=== PATIENT | female | born 1995 | race Caucasian/White ===

== ENCOUNTER 2021-05-31 23:52 | Inpatient (IN) | payer OTHER ==
[~2021-05-31] VITALS: Ht 167.6 cm; Wt 77.6 kg
[2021-06-01] MEDS ORDERED: ONE-A-DAY PREN1 EAC2 PO (01:10)
--- NOTE | 2021-06-01 18:48 | PR ---
[facility] [address] [facility] [place], [place] [address] Signed Progress Notes IP Datetime Report Generated by CPN: 06/01/2021 18:48 PROGRESS NOTES: [id number] Impression: Arrest of Dilatation/Descent; Reassuring Heart Rate Plan: Continue Present Management Other Plans: add pitocin VITAL SIGNS: [id number] EXAM: [id number] Dilatation: 5.0 Effacement: 85 Station: -2 Contractions: q 2-3 min, mild per pt MEMBRANES: [id number] Membranes Status: Ruptured Comments: Pt is a 26 yo @ 37 weeks gestation here for MIOL for gHTN -s/p cytotec x 2, AROM, minimal progress since 4pm -comfortable with epidural -s/p Julian x 5 doses -start low-dose pitocin FETUS A: [id number] FHR Baseline: 145 Variability: Minimal - >Undetectable to <=5bpm Accelerations: None Decelerations: None FHR Category: Category II Presentation: Vertex FETUS B: [id number] Signing Physician: Evin Calhoun DO Copies: ~ *Electronically Signed* 06/01/21 184 EVIN CALHOUN DO PATIENT NAME: XIN WILLETT PROGRESS NOTE DATE OF : [birth year] PHYSICIAN: EVIN CALHOUN #: [id number] REPORT IS CONFIDENTIAL AND NOT TO BE RELEASED WITHOUT AUTHORIZATION
--- NOTE | 2021-06-01 22:37 | PR ---
[facility] [address] [facility] [place], [place] [address] Signed Progress Notes IP Datetime Report Generated by CPN: 06/01/2021 22:37 PROGRESS NOTES: [id number] Impression: Normal Progression of Labor; Reassuring Heart Rate Plan: Continue Present Management Other Plans: add pitocin VITAL SIGNS: [id number] EXAM: [id number] Dilatation: 6.0 Effacement: 90 Station: 0 Contractions: q 2-3 min, mild per pt MEMBRANES: [id number] Membranes Status: Ruptured Comments: Progressing well with pitocin Discussed laboring down vs immediate pushing when complete, pt desires pushing when feeling strong urge Anticipate FETUS A: [id number] FHR Baseline: 145 Variability: Minimal - >Undetectable to <=5bpm Accelerations: None Decelerations: None FHR Category: Category II Presentation: Vertex FETUS B: [id number] Signing Physician: Evin Calhoun DO Copies: ~ *Electronically Signed* 06/01/212236 EVIN CALHOUN DO PATIENT NAME: XIN WILLETT PROGRESS NOTE DATE OF : [birth year] PHYSICIAN: EVIN CALHOUN DO RPT #: [id number] REPORT IS CONFIDENTIAL AND NOT TO BE RELEASED WITHOUT AUTHORIZATION
--- NOTE | 2021-06-03 08:56 | PR ---
[facility] [address] [place], [place] [address] Signed PP Progress Notes Datetime Report Generated by CPN: 06/03/2021 08:56 SUBJECTIVE: [id number] Pain: Within Normal Limits Nausea/Vomiting: Denies Flatus: Yes Bowel Movement: No Vital Signs: [id number] Vital Signs: Reviewed; Within Normal Limits Notable Details: Afebrile, normotensive EXAM: Ongoing Cardiovascular: Normal Respiratory: Normal Abdomen/Uterus: Normal Lochia: Normal Extremities: Normal Progress: Normal Exam Comments: NAD, sitting in bed eating breakfast RRR No dyspnea/retractions FFBU, abd SNTND Ext: trace edema, neg Natacha's BL IMPRESSION/PLAN/PROCEDURES: [id number] Impression: Normal Progression Plan: Continue Present Management Procedures: None Progress Notes: PPD #1 s/p after MIOL for gHTN -progressing well -hgb 10.0 PPD#1 s/p Intraamniotic infection, received amp/gent x 1, afebrile gHTN, normotensive , asymptomatic Plan: DC to home tomorrow (PPD#2) Signing Physician: Evin Calhoun DO Copies: *Electronically Signed* 06/03/21 0856 EVIN CALHOUN DO PATIENT NAME: XIN WILLETT PROGRESS NOTE DATE OF : [birth year] PHYSICIAN: EVIN CALHOUN DO RPT #: [id number] REPORT IS CONFIDENTIAL AND NOT TO BE RELEASED WITHOUT AUTHORIZATION [address], [place] [address] Signed ~ *Electronically Signed* 06/03/21 0856 EVIN CALHOUN DO PATIENT NAME: XIN WILLETT PROGRESS NOTE DATE OF : 94 PHYSICIAN: EVIN CALHOUN DO RPT #: [id number] REPORT IS CONFIDENTIAL AND NOT TO BE RELEASED WITHOUT AUTHORIZATION
--- NOTE | 2021-06-04 10:25 | PR ---
[facility] [address] [place], [place] [address] Signed PP Progress Notes Datetime Report Generated by CPChloe: 06/04/2021 10:25 SUBJECTIVE: [id number] Pain: Within Normal Limits Nausea/Vomiting: Denies Flatus: Yes Bowel Movement: No Vital Signs: [id number] Vital Signs: Reviewed; Within Normal Limits Notable Details: Normotensive and afebrile EXAM: Ongoing Cardiovascular: Normal Respiratory: Normal Abdomen/Uterus: Normal Lochia: Normal Vulva/Perineum: Normal Extremities: Normal Progress: Normal Exam Comments: NAD, standing at bedside RRR No dyspnea/ retractions Abd SNTND, FFBU Ext: 1+ BLLE edema, neg Natacha's BL with minimal milk production IMPRESSION/PLAN/PROCEDURES: [id number] Impression: Normal Progression Plan: Continue Present Management; Discharge Other Plans: outpatient support encouraged Procedures: None Progress Notes: PPD#2 s/p MIOL at 37 weeks gestation for gHTN -normotensive -PreE precautions reviewed Intraamniotic infection -maternal temp 102.7 while pushing shortly before delivery -s/p Amp/Gent IV x 1 dose *Electronically Signed* 06/04/21 1025 EVIN CALHOUN DO PATIENT NAME: XIN WILLETT PROGRESS NOTE DATE OF : [birth year] PHYSICIAN: EVIN CALHOUN DO RPT #: [id number] REPORT IS CONFIDENTIAL AND NOT TO BE RELEASED WITHOUT AUTHORIZATION [facility] [address] [place], [place] [address] Signed -afebrile GBS carrier -s/p adequate prophylaxis with Julian Retained placenta -manual extraction performed for missing piece of placenta -s/p Azithromycin 500mg for manual extraction -lochia WNL Anticipate DC to home today Uncertain re: contraception Signing Physician: Evin Cahloun DO Copies: ~ *Electronically Signed* 06/04/21 1025 EVIN CALHOUN DO PATIENT NAME: XIN WILLETT PROGRESS NOTE DATE OF : 94 PHYSICIAN: EVIN CALHOUN DO RPT #: [id number] REPORT IS CONFIDENTIAL AND NOT TO BE RELEASED WITHOUT AUTHORIZATION
== END 2021-06-04 11:50 | disposition home or self-care (01) | DRG 805 ==
LOC: FBC 06-01 00:01
PROVIDERS: ADMIT Obstetrics & Gynecology; ATTEND Obstetrics & Gynecology
PROC: 10E0XZZ Delivery of Products of Conception, External Approach (ICD-10-PCS; principal; 2021-06-02)
PROC: 10907ZC Drainage of Amniotic Fluid, Therapeutic from Products of Conception, Via Natural or Artificial Opening (ICD-10-PCS; 2021-06-02)
PROC: 3E0P7VZ Introduction of Hormone into Female Reproductive, Via Natural or Artificial Opening (ICD-10-PCS; 2021-06-02)
PROC: 0KQM0ZZ Repair Perineum Muscle, Open Approach (ICD-10-PCS; 2021-06-02)
PROC: 3E0R3BZ Introduction of Anesthetic Agent into Spinal Canal, Percutaneous Approach (ICD-10-PCS; 2021-06-02)
PROC: 00HU33Z Insertion of Infusion Device into Spinal Canal, Percutaneous Approach (ICD-10-PCS; 2021-06-02)
PROC: 10D17Z9 Manual Extraction of Products of Conception, Retained, Via Natural or Artificial Opening (ICD-10-PCS; 2021-06-02)
DX: O13.4 Gestational [pregnancy-induced] hypertension without significant proteinuria, complicating childbirth (principal); O41.1230 Chorioamnionitis, third trimester, not applicable or unspecified; Z37.0 Single live birth; Z3A.37 37 weeks gestation of pregnancy; O70.1 Second degree perineal laceration during delivery; O73.1 Retained portions of placenta and membranes, without hemorrhage; O99.824 Streptococcus B carrier state complicating childbirth; Z79.899 Other long term (current) drug therapy
CPT/HCPCS: 01960; 36415; 80053; 82570; 83615; 84156; 84550; 85027; 86850; 86900; 86901; A9270; J0290; J0456; J1580; J2001; J2405; J2540; J2590; J2795; J7060; J7121

== ENCOUNTER 2023-06-12 17:51 | Inpatient (IN) | payer OTHER ==
[~2023-06-12] VITALS: Ht 167.6 cm; Wt 82.6 kg
[~2023-06-12 17:51] MED LIST: ONE-A-DAY PREN1 EAC2 PO
[2023-06-12] MEDS ORDERED: miSOPROStoL 25 MCG TAB PV SCH (22:45)
[2023-06-12] MEDS ORDERED: MAGNESIUM HYDROXIDE/AL HYDROX 30 ML CUP PO PRN (22:45)
[2023-06-12] MEDS ORDERED: OXYTOCIN/DEXTROSE 5% 20 UNITS/100 ML BAG IV SCH (22:45)
[2023-06-12] MEDS ORDERED: CALCIUM CARBONATE 500 MG CHEW PO PRN (22:45)
[2023-06-12] MEDS ORDERED: PENICILLIN G POTASSIUM 5 MUNITS/110 ML PIGGYBACK IV ONE (23:00)
[2023-06-12 23:15] LABS: AMPHETAMINES, URINE NEGATIVE (NEGATIVE); BARBITURATES, URINE NEGATIVE (NEGATIVE); BENZODIAZEPINE, URINE NEGATIVE (NEGATIVE); BUPRENORPHINE, URINE NEGATIVE (NEGATIVE); CANNABINOID, URINE NEGATIVE (NEGATIVE); COCAINE, URINE NEGATIVE (NEGATIVE); ECSTASY, URINE NEGATIVE (NEGATIVE); FENTANYL, URINE NEGATIVE (NEGATIVE); METHADONE, URINE NEGATIVE (NEGATIVE); OPIATES, URINE NEGATIVE (NEGATIVE); OXYCODONE, URINE NEGATIVE (NEGATIVE); PHENCYCLIDINE, URINE NEGATIVE (NEGATIVE)
[2023-06-12] MEDS ORDERED: LACTATED RINGER'S 1,000 ML IV PRN (23:30)
[2023-06-12] MEDS ORDERED: LACTATED RINGER'S 1,000 ML IV SCH (23:30)
[2023-06-12 23:37] LABS: ABO O; RH POSITIVE
[2023-06-12 23:38] LABS: ANTIBODY SCREEN NEGATIVE
[2023-06-12 23:58] VITALS: BP 134/84
[2023-06-13] MEDS ORDERED: PENICILLIN G POTASSIUM 5 MUNITS/10 ML VIAL ONE ×2 (02:24→06:26)
[2023-06-13] MEDS ORDERED: PENICILLIN G POTASSIUM 2.5 MUNITS in DEXTROSE 5% 100 ML IV SCH (03:00)
[2023-06-13] MEDS ORDERED: ROPIVACAINE 0.2% 200 ML BAG ONE (08:00)
[2023-06-13] MEDS ORDERED: ePHEDrine sulfate 5 MG/ML SYRINGE IV PRN (08:30)
[2023-06-13] MEDS ORDERED: LACTATED RINGER'S 2,000 ML IV ONE (08:30)
[2023-06-13] MEDS ORDERED: LACTATED RINGER'S 500 ML IV PRN (08:30)
[2023-06-13] MEDS ORDERED: ROPIVACAINE 0.2% 200 ML BAG EPIDURAL SCH (08:30)
[2023-06-13] MEDS ORDERED: dexmedeTOMIDine HCl 200 MCG/2 ML VIAL ONE (08:53)
[2023-06-13] MEDS ORDERED: SODIUM CHLORIDE 0.9% 20 ML IV ONE (08:54)
--- NOTE | 2023-06-13 08:57 | PR ---
[facility] [address] [facility] [place], [place] [address] Signed Progress Notes IP Datetime Report Generated by CPN: 06/13/2023 08:57 PROGRESS NOTES: [id number] Impression: Normal Progression of Labor Procedures: Artificial ROM; Sterile Vag Exam Plan: Continue Present Management VITAL SIGNS: [id number] Vital Signs: Reviewed; Within Normal Limits EXAM: [id number] Dilatation: 4.5 Effacement: 80 Station: -2 Contractions: q 2 to 3 min MEMBRANES: [id number] Comments: More uncomfortable overall with some relief from epidural. status good. BPs still elevated but no severe elevations. Will continue. FETUS A: [id number] FHR Baseline: 125 Variability: Moderate 6-25bpm Accelerations: 15X15 Decelerations: None FHR Category: Category I Presentation: Vertex FETUS B: [id number] Signing Physician: Leesa Luna MD Copies: ~ *Electronically Signed* 06/13/23 0857 LEESA LUNA MD PATIENT NAME: XIN WILLETT PROGRESS NOTE DATE OF : 94 PHYSICIAN: LEESA LUNA MD RPT #: [id number] REPORT IS CONFIDENTIAL AND NOT TO BE RELEASED WITHOUT AUTHORIZATION
--- NOTE | 2023-06-13 10:51 | PR ---
[facility] [address] [place], [place] [address] Signed Progress Notes IP Datetime Report Generated by VALENTINO: 06/13/2023 10:51 PROGRESS NOTES: [id number] Impression: Normal Progression of Labor; Non-reassuring Heart Rate Procedures: Scalp Electrode; Sterile Vag Exam Plan: Continue Present Management Other Plans: position changes VITAL SIGNS: [id number] Vital Signs: Reviewed; Within Normal Limits EXAM: [id number] Dilatation: 8.0 Effacement: 80 Station: -2 Contractions: q 2 to 3 min MEMBRANES: [id number] Comments: Progressing well. status concerning but progressing rapidly. Will continue close observation with delivery hopefully soon. FETUS A: [id number] FHR Baseline: 125 Variability: Minimal - >Undetectable to <=5bpm Accelerations: 15X15 Decelerations: Variable FHR Category: Category II Presentation: Vertex FETUS B: [id number] Signing Physician: Leesa Luna MD Copies: ~ *Electronically Signed* 06/13/23 1051 LEESA LUNA MD PATIENT NAME: XIN WILLETT PROGRESS NOTE DATE OF : 94 PHYSICIAN: LEESA LUNA MD RPT #: [id number] REPORT IS CONFIDENTIAL AND NOT TO BE RELEASED WITHOUT AUTHORIZATION
[2023-06-13] MEDS ORDERED: WITCH HAZEL/GLYCERIN 1 EA PAD TOP PRN (12:00)
[2023-06-13] MEDS ORDERED: HYDROCORTISONE ACETATE 25 MG SUPP PR PRN (12:00)
[2023-06-13] MEDS ORDERED: MAGNESIUM HYDROXIDE/AL HYDROX 30 ML CUP PO PRN (12:00)
[2023-06-13] MEDS ORDERED: OXYTOCIN/0.9 % SODIUM CHLORIDE 500 ML IV SCH (12:00)
[2023-06-13] MEDS ORDERED: CALCIUM CARBONATE 500 MG CHEW PO PRN (12:00)
[2023-06-13] MEDS ORDERED: IBUPROFEN 600 MG TAB PO PRN (12:00)
[2023-06-13] MEDS ORDERED: BENZOCAINE/LANOLIN/ALOE VERA 60 ML AEROSOL TOP PRN (12:00)
[2023-06-13] MEDS ORDERED: ACETAMINOPHEN 325 MG TAB PO PRN (12:00)
[2023-06-13] MEDS ORDERED: MAGNESIUM HYDROXIDE 30 ML UDC PO PRN (12:00)
[2023-06-13] MEDS ORDERED: HYDROCODONE/ACETA 5/325 TAB PO PRN (12:00)
[2023-06-13] MEDS ORDERED: OXYCODONE HCL 5 MG TAB PO PRN (12:00)
[2023-06-13] MEDS ORDERED: LIDOCAINE 2% VISCOUS 6 ML SYR TOP ONE ×2 (12:00)
[2023-06-13] MEDS ORDERED: SENNOSIDES/DOCUSATE 1 EA TAB PO SCH (21:00)
[2023-06-14 05:27] LABS: HEMATOCRIT 37.4 % (35.0-50.0); HEMOGLOBIN 12.4 g/dL (12.0-18.0); MCH 30.9 (27-36); MCHC 33.3 g/dl (30-36); MCV 92.9 fl (81-99); RBC 4.03 M/ul (4.3-5.7); RDW 14.2 (10.5-15.0)
--- NOTE | 2023-06-14 08:30 | PR ---
[facility] [address] [facility] [place] [address] Signed PP Progress Notes Datetime Report Generated by CPN: 06/14/2023 08:30 SUBJECTIVE: [id number] Pain: Within Normal Limits Vital Signs: [id number] Vital Signs: Reviewed; Within Normal Limits Cardiovascular: Not Done Respiratory: Not Done Abdomen/Uterus: Abnormal Lochia: Normal Vulva/Perineum: Not Done Breasts: Not Done CVA Tenderness: Not Done Extremities: Normal Incision: Not Applicable Progress: Normal Exam Comments: Fundus firm, NT @ U-1. H/H 12.4/37.4, plat 175k IMPRESSION/PLAN/PROCEDURES: [id number] Impression: Normal Progression Plan: Discharge Procedures: None Progress Notes: Doing well. She desires discharge. Signing Physician: Leesa Luna MD Copies: ~ *Electronically Signed* 06/14/23829 LEESA LUNA MD PATIENT NAME: XIN WILLETT PROGRESS NOTE DATE OF : [birth year] PHYSICIAN: LEESA LUNA MD RPT #: [id number] REPORT IS CONFIDENTIAL AND NOT TO BE RELEASED WITHOUT AUTHORIZATION
--- NOTE | 2023-06-14 11:15 | NUR ---
VISIT PT DURING ROUNDING. DETAIL NOTE ENTERED INTO [facility] CHARTING SYSTEM.
== END 2023-06-14 13:30 | disposition home or self-care (01) | DRG 807 ==
LOC: FBC 17:51
PROVIDERS: ADMIT Obstetrics & Gynecology; ATTEND Obstetrics & Gynecology
PROC: 10E0XZZ Delivery of Products of Conception, External Approach (ICD-10-PCS; principal; 2023-06-13)
PROC: 3E0R3BZ Introduction of Anesthetic Agent into Spinal Canal, Percutaneous Approach (ICD-10-PCS; 2023-06-13)
PROC: 00HU33Z Insertion of Infusion Device into Spinal Canal, Percutaneous Approach (ICD-10-PCS; 2023-06-13)
PROC: 10907ZC Drainage of Amniotic Fluid, Therapeutic from Products of Conception, Via Natural or Artificial Opening (ICD-10-PCS; 2023-06-13)
DX: O13.4 Gestational [pregnancy-induced] hypertension without significant proteinuria, complicating childbirth (principal); Z37.0 Single live birth; O76 Abnormality in fetal heart rate and rhythm complicating labor and delivery; O99.824 Streptococcus B carrier state complicating childbirth; O69.81X0 Labor and delivery complicated by cord around neck, without compression, not applicable or unspecified; O14.04 Mild to moderate pre-eclampsia, complicating childbirth; Z3A.38 38 weeks gestation of pregnancy
CPT/HCPCS: 01960; 36415; 80307; 82803; 85027; 86850; 86900; 86901; A9270; J2540; J7121